=== PATIENT | male | born 1995 | race Asian ===

== ENCOUNTER → 2019-09-16 | Emergency (ER) | payer OTHER | END | disposition home or self-care (01) | LOC: M ED 15:17 | DX: M51.36 Other intervertebral disc degeneration, lumbar region (principal); M51.37 Other intervertebral disc degeneration, lumbosacral region ==

== ENCOUNTER 2020-08-12 13:00 | Emergency (ER) | payer OTHER ==
[~2020-08-12] VITALS: Ht 180.3 cm; Wt 81.3 kg
[2020-08-12 13:05] VITALS: BP 145/65
--- NOTE | 2020-08-12 13:45 | REP ---
INDICATION: injury, pain. COMPARISON: None. TECHNIQUE: Four views FINDINGS: No acute fracture or destructive osseous lesion. The mortise is intact. IMPRESSION: Negative exam <Electronically signed by Christian Leon > 08/12/20 1376
[2020-08-12] MEDS ORDERED: IBUPROFEN 800 MG TAB PO ONE (16:00)
== END 2020-08-12 16:46 | disposition home or self-care (01) ==
LOC: M ED 13:00
DX: S93.401A Sprain of unspecified ligament of right ankle, initial encounter (principal); X50.9XXA Other and unspecified overexertion or strenuous movements or postures, initial encounter; Y92.59 Other trade areas as the place of occurrence of the external cause; Y93.89 Activity, other specified; Y99.8 Other external cause status

== ENCOUNTER 2021-02-02 06:25 | Emergency (ER) | payer OTHER ==
[~2021-02-02] VITALS: Ht 180.3 cm; Wt 79.5 kg
[2021-02-02] MEDS ORDERED: ONDANSETRON 4MG/2ML VIAL IV ONE (08:30)
[2021-02-02] MEDS ORDERED: NS 1,000 ML IV ONE ×2 (08:30→09:40)
[2021-02-02 09:23] LABS: BASO # 0.1 10^3/uL (0.0-0.2); BASO % 1.2 % (0.0-1.0); EOS # 0.3 10^3/uL (0.0-0.5); EOS % 6.8 % (0.0-3.0); HEMATOCRIT 43.6 % (42.0-52.0); HEMOGLOBIN 14.1 g/dl (13.5-17.5); LYMPH # 1.9 10^3/uL (1.5-5.0); LYMPH % 38.2 % (24.0-44.0); MEAN CORPUSCULAR HEMOGLOBIN 26.2 pg (27.0-33.0); MEAN CORPUSCULAR HGB CONC 32.3 g/dl (32.0-36.5); MONO # 0.4 10^3/uL (0.0-0.8); MONO % 8.5 % (2.0-8.0); NEUTROPHILS # 2.2 10^3/uL (1.5-8.5); NEUTROPHILS % 45.1 % (36.0-66.0); PLATELET COUNT, AUTOMATED 248 10^3/uL (150-450); RED BLOOD COUNT 5.38 10^6/uL (4.30-6.10)
[2021-02-02 09:35] LABS: ALBUMIN 3.7 GM/DL (3.2-5.2); BILIRUBIN,DIRECT 0.2 MG/DL (0.0-0.2); BILIRUBIN,TOTAL 0.9 MG/DL (0.2-1.0); TOTAL PROTEIN 7.2 GM/DL (6.4-8.2)
[2021-02-02 11:11] VITALS: BP 114/56
== END 2021-02-02 11:12 | disposition home or self-care (01) ==
LOC: M ED 06:25
DX: R10.84 Generalized abdominal pain (principal)
CPT/HCPCS: 76705; 80047; 80076; 81001; 83690; 85025; 96361; 96374; 99284; J2405

== ENCOUNTER 2021-12-04 18:42 | Emergency (ER) | payer OTHER ==
[~2021-12-04] VITALS: Ht 180.3 cm; Wt 88.5 kg
[2021-12-04 18:44] VITALS: BP 153/83
== END 2021-12-04 19:56 | disposition home or self-care (01) ==
LOC: M ED 18:42
DX: R51.9 Headache, unspecified (principal)

== ENCOUNTER → 2022-01-17 | Outpatient (REF) | LOC: M PLAIMG 12:19 | PROVIDERS: ATTEND Internal Medicine | DX: R52 Pain, unspecified (principal) ==